=== PATIENT | female | born 1960 | race Hispanic/Latino ===

== ENCOUNTER 2021-03-22 19:12 | Inpatient (IN) | payer SELFPAY ==
[~2021-03-22] VITALS: Ht 149.9 cm; Wt 59.9 kg
[2021-03-22 19:34] LABS: APPEARANCE,URINE Clear (CLEAR); BILIRUBIN,URINE Negative (NEGATIVE); COLOR,URINE Yellow (YELLOW); GLUCOSE, URINE (UA) >=1000 mg/dL (NEGATIVE); KETONES,URINE Negative (NEGATIVE); LEUKOCYTE ESTERASE ,URINE Trace (NEGATIVE); NITRATE,URINE Negative (NEGATIVE); OCCULT BLOOD,URINE Negative (NEGATIVE); PROTEIN,URINE Negative (NEGATIVE); UROBILINOGEN,URINE 0.2 mg/dL (0.2-1.0)
[2021-03-22 19:46] LABS: BASOPHILS % (AUTO) 0.4 % (0.0-5.0); EOSINOPHILS % (AUTO) 0.7 % (0.0-8.0); HEMATOCRIT 30.3 % (36-48); LYMPHOCYTES % (AUTO) 13.1 % (21.0-51.0); MEAN CORPUSCULAR HEMOGLOBIN 30.5 pg (27.0-33.0); MEAN CORPUSCULAR HGB CONC 35.6 g/dL (32.0-36.0); MEAN CORPUSCULAR VOLUME 85.6 fL (79-99); PLATELET COUNT (AUTO) 336 K/uL (130-400); RED BLOOD CELL COUNT(AUTO) 3.54 MIL/uL (4.00-5.50); RED CELL DISTRIBUTION WIDTH 12.8 % (11.0-15.5); WHITE BLOOD COUNT (AUTO) 10.4 K/uL (4.8-10.8)
[2021-03-22 19:48] LABS: BACTERIA,URINE Rare /HPF (None Seen); RBC,URINE 0-1 /HPF (0-1)
[2021-03-22 19:50] LABS: SQUAMOUS EPITHELIAL CELL,UR Few /HPF (0-2)
[2021-03-22 20:17] LABS: ALBUMIN 3.4 g/dL (3.5-5.0); BILIRUBIN,TOTAL 0.5 mg/dL (0.2-1.0); CREATININE 1.4 mg/dL (0.5-1.5); POTASSIUM 4.7 mmol/L (3.5-5.1); TOTAL PROTEIN, SERUM 8.3 g/dL (6.0-8.3)
[2021-03-22] MEDS ORDERED: INSULIN HUMULIN R 100 UNIT/ML 3ML ONE ×2 (20:52→22:50)
[2021-03-22] MEDS ORDERED: 0.9%NACL 1000ML 2,000 ML IV ONE (20:53)
[2021-03-22] MEDS ORDERED: 0.9%NACL 1000ML 1,000 ML IV ONE ×2 (21:00)
[2021-03-22] MEDS ORDERED: INSULIN HUMULIN R 100 UNIT/ML 3ML IV ONE (21:00)
[2021-03-22 21:15] LABS: ABG OXYGEN SATURATION 86.3 % (95.0-99.0); HCO3,VENOUS BLOOD GAS 28.3 (21.0-28.0); PCO2,VENOUS BLOOD GAS 41 (32-45); PH,VENOUS BLOOD GAS 7.454 (7.350-7.450)
[2021-03-22] MEDS ORDERED: INSULIN REGULAR, HUMAN 3ML 100 UNIT in 0.9%NACL 100ML 99 ML IV PRN ×2 (22:00)
[2021-03-22] MEDS ORDERED: ONDANSETRON 4MG INJ IV PRN (22:00)
[2021-03-22] MEDS ORDERED: POTASSIUM CHLORIDE 10MEQ/100ML 100 ML IV PRN (22:00)
[2021-03-22 22:03] LABS: AMYLASE 36 U/L (25-115); LIPASE 318 U/L (114-286)
[2021-03-22] MEDS ORDERED: LEVO125C4 PO (22:18)
[2021-03-22] MEDS ORDERED: ENAL20TA18 PO (22:18)
[2021-03-22] MEDS ORDERED: FURO20TA4 PO (22:18)
[2021-03-22] MEDS ORDERED: METF-444 PO (22:18)
[2021-03-22] MEDS ORDERED: 0.9%NACL 100ML 100 ML ONE (22:51)
[2021-03-22] MEDS: 0.9%NACL 1000ML 1,000 ML IV SCH (23:59)
[2021-03-23 01:29] LABS: POTASSIUM 3.6 mmol/L (3.5-5.1)
[2021-03-23] MEDS: 0.9%NACL 1000ML 1,000 ML IV SCH ×2 (03:00→10:41)
[2021-03-23] MEDS: DEXTROSE 5 %-0.45 % NACL 1,000 ML IV PRN ×3 (04:35→13:35)
[2021-03-23 04:51] LABS: BASOPHILS % (AUTO) 0.4 % (0.0-5.0); EOSINOPHILS % (AUTO) 1.6 % (0.0-8.0); HEMATOCRIT 26.7 % (36-48); LYMPHOCYTES % (AUTO) 19.6 % (21.0-51.0); MEAN CORPUSCULAR HEMOGLOBIN 30.3 pg (27.0-33.0); MEAN CORPUSCULAR HGB CONC 34.8 g/dL (32.0-36.0); MONOCYTES % (AUTO) 5.4 % (3.0-13.0); NEUTROPHILS % (AUTO) 70.8 % (40.0-77.0); PLATELET COUNT (AUTO) 267 K/uL (130-400); RED BLOOD CELL COUNT(AUTO) 3.07 MIL/uL (4.00-5.50); RED CELL DISTRIBUTION WIDTH 12.8 % (11.0-15.5); WHITE BLOOD COUNT (AUTO) 9.4 K/uL (4.8-10.8)
[2021-03-23 05:18] LABS: HEMOGLOBIN A1C 12.2 % (4.0-6.0)
[2021-03-23 05:20] LABS: CREATININE 0.7 mg/dL (0.5-1.5); MAGNESIUM 1.6 mg/dL (1.80-2.40); PHOSPHORUS 2.8 mg/dL (2.5-4.9); POTASSIUM 3.5 mmol/L (3.5-5.1); THYROID STIMULATING HORMONE 5.86 uIU/mL (0.36-3.74)
[2021-03-23] MEDS ORDERED: MAGNESIUM 2GM PREMIX 50ML 50 ML IV ONE (06:43)
[2021-03-23] MEDS ORDERED: MAGNESIUM 2GM PREMIX 50ML 50 ML IV SCH (07:00)
[2021-03-23 08:10] LABS: CREATININE 0.7 mg/dL (0.5-1.5); POTASSIUM 3.6 mmol/L (3.5-5.1)
[2021-03-23] MEDS ORDERED: KCL 20 MEQ ERTAB PO SCH (08:55)
[2021-03-23] MEDS: ENOXAPARIN SODIUM 40 MG/0.4 ML SYRINGE SQ SCH (08:58)
[2021-03-23] MEDS: FAMOTIDINE 20MG VIAL IV SCH (08:58)
[2021-03-23] MEDS: CEFTRIAXONE 1G VIAL IVP SCH (09:54)
[2021-03-23 12:52] LABS: CREATININE 0.7 mg/dL (0.5-1.5); POTASSIUM 4.6 mmol/L (3.5-5.1)
[2021-03-23 16:22] LABS: CREATININE 0.7 mg/dL (0.5-1.5); POTASSIUM 4.5 mmol/L (3.5-5.1)
[2021-03-23] MEDS ORDERED: INSULIN GLARGINE 100 UNITS/ML 10 ML VIAL SQ ONE (18:00)
[2021-03-23 19:01] LABS: CREATININE 0.8 mg/dL (0.5-1.5); POTASSIUM 4.4 mmol/L (3.5-5.1)
[2021-03-23] MEDS ORDERED: INSULIN HUMULIN R 100 UNIT/ML 3ML SQ SCH (21:00)
[2021-03-23] MEDS: INSULIN HUMULIN R 100 UNIT/ML 3ML SQ SCH (21:13)
[2021-03-24 01:45] VITALS: BP 170/80
[2021-03-24 02:30] VITALS: BP 147/83
[2021-03-24] MEDS: LACTATED RINGERS 1000ML 1,000 ML IV SCH ×2 (05:03→06:34)
[2021-03-24] MEDS: INSULIN HUMULIN R 100 UNIT/ML 3ML SQ SCH ×3 (06:44→17:28)
[2021-03-24] MEDS ORDERED: INSULIN HUMULIN R 100 UNIT/ML 3ML SQ SCH ×3 (07:30→17:00)
[2021-03-24 08:00] VITALS: BP 147/83
[2021-03-24] MEDS ORDERED: INSULIN GLARGINE 100 UNITS/ML 10 ML VIAL SQ SCH (08:00)
[2021-03-24] MEDS: FAMOTIDINE 20MG VIAL IV SCH (09:24)
[2021-03-24] MEDS: CEFTRIAXONE 1G VIAL IVP SCH (09:25)
[2021-03-24] MEDS: ENOXAPARIN SODIUM 40 MG/0.4 ML SYRINGE SQ SCH (09:26)
[2021-03-24 11:43] VITALS: BP 138/89
[2021-03-24 16:00] VITALS: BP 156/89
== END 2021-03-24 18:05 | disposition home or self-care (01) | DRG 638 ==
LOC: EDH 19:12 → EDHIP 19:13 → 3AH 03-24 00:05
PROVIDERS: ADMIT Internal Medicine; ATTEND Internal Medicine
DX: E11.00 Type 2 diabetes mellitus with hyperosmolarity without nonketotic hyperglycemic-hyperosmolar coma (NKHHC) (principal); N17.9 Acute kidney failure, unspecified; E03.9 Hypothyroidism, unspecified; I10 Essential (primary) hypertension; E86.0 Dehydration; D64.9 Anemia, unspecified; E11.65 Type 2 diabetes mellitus with hyperglycemia; Z79.4 Long term (current) use of insulin; Z90.710 Acquired absence of both cervix and uterus
CPT/HCPCS: 36415; 36600; 71045; 80048; 80053; 81001; 82010; 82150; 82435; 82803; 82947; 82948; 83036; 83605; 83690; 83735; 83880; 84100; 84132; 84145; 84295; 84443; 84484; 85025; 87077; 87088; 87186; 93005; G0378; J0696; J1650; J1815; J3475; J3490; J7030; J7042; J7120

== ENCOUNTER → 2022-02-10 | Outpatient (CLI) | payer OTHER ==
[~2022-02-10] MED LIST: ENAL20TA18 PO; FURO20TA4 PO; LEVO125C4 PO
== END | disposition home or self-care (01) ==
LOC: RAH 09:36
PROVIDERS: ATTEND Internal Medicine
DX: R92.8 Other abnormal and inconclusive findings on diagnostic imaging of breast (principal); N63.11 Unspecified lump in the right breast, upper outer quadrant
CPT/HCPCS: 76641; 77066